=== PATIENT | female | born 1970 | race Caucasian/White ===

== ENCOUNTER 2021-07-02 19:23 | Emergency (ER) | payer MEDICAID, OTHER, SELFPAY ==
--- NOTE | 2021-07-02 20:01 | NUR ---
NIL X1. WHEN CALLED FOR TRIAGE.
--- NOTE | 2021-07-02 20:44 | NUR ---
NIL X 2 WHEN CALLED FOR TRIAGE.
--- NOTE | 2021-07-02 21:00 | NUR ---
NIL X 3 WHEN CALLED FOR TRIAGE.
== END 2021-07-02 21:01 | disposition left against medical advice (07) ==
LOC: ED 19:30
DX: T15.92XA Foreign body on external eye, part unspecified, left eye, initial encounter (principal); X58.XXXA Exposure to other specified factors, initial encounter; Y93.89 Activity, other specified; Y92.89 Other specified places as the place of occurrence of the external cause; Y99.8 Other external cause status; Z53.21 Procedure and treatment not carried out due to patient leaving prior to being seen by health care provider